=== PATIENT | male | born 1975 | race Caucasian/White ===

== ENCOUNTER 2021-04-20 17:11 | Emergency (ER) | payer MEDICARE, OTHER ==
[2021-04-20 18:23] LABS: BASOPHIL 0.5 % (0-2); EOSINOPHIL 0.4 % (0-5); HGB 17.5 g/dl (13.2-18.0); LYMPHOCYTE 17.8 % (15-48); MCH 27.8 pg (25.0-31.0); MCV 79.4 fL (78.0-100.0); MPV 10.2 fL (6.0-9.5); NEUTROPHIL 75.1 % (41-80); NRBC 0; PLT 282 K/uL (150-400); RDW 15.2 % (11.5-14.0); WBC 8.5 K/uL (4.0-10.5)
[2021-04-20 18:43] LABS: BUN/CREAT RATIO (CALC) 20.5 RATIO; CREATININE 0.83 mg/dL (0.67-1.17)
[2021-04-20 19:03] LABS: ALT 90 U/L (16-63); AST 30 U/L (15-37); LIPASE 251 U/L (73-393)
[2021-04-20 19:25] LABS: BILIRUBIN NEGATIVE (NEGATIVE); BLOOD NEGATIVE Ery/uL (NEGATIVE); CLARITY CLEAR (CLEAR); COLOR YELLOW (YELLOW); GLUCOSE (U) 3+ mg/dL (NORMAL); LEUKOCYTES NEGATIVE Leu/uL (NEGATIVE); NITRITE NEGATIVE (NEGATIVE); PROTEIN NEGATIVE (NEGATIVE); UROBILINOGEN 0.2 mg/dL (0.2-1.0)
[2021-04-20] MEDS ORDERED: BENTYL10 MG PO (19:48)
[2021-04-20] MEDS ORDERED: ZOFRAN4 M1 PO (19:48)
== END 2021-04-20 20:05 | disposition home or self-care (01) ==
LOC: FER 17:11
PROVIDERS: Nurse Practitioner Family
DX: R11.2 Nausea with vomiting, unspecified (principal); R51.9 Headache, unspecified; E11.9 Type 2 diabetes mellitus without complications; I10 Essential (primary) hypertension; Z20.822 Contact with and (suspected) exposure to COVID-19; Z79.01 Long term (current) use of anticoagulants; Z79.899 Other long term (current) drug therapy; Z79.84 Long term (current) use of oral hypoglycemic drugs
CPT/HCPCS: 36415; 80048; 81003; 83690; 84450; 84460; 85025; J1885; J2405; J3480; J7030; Q9967; U0002

== ENCOUNTER 2021-08-28 20:59 | Emergency (ER) | payer MEDICARE, OTHER ==
[~2021-08-28 20:59] MED LIST: BENTYL10 MG PO; ZOFRAN4 M1 PO
[2021-08-28 23:11] LABS: BASOPHIL 0.3 % (0-2); EOSINOPHIL 1.1 % (0-5); HCT 48.2 % (42.0-52.0); HGB 15.5 g/dl (13.2-18.0); LYMPHOCYTE 10.4 % (15-48); MCH 26.5 pg (25.0-31.0); MCHC 32.2 g/dL (32.0-36.0); MCV 82.4 fL (78.0-100.0); MPV 9.7 fL (6.0-9.5); NRBC 0; PLT 221 K/uL (150-400); RBC 5.85 M/uL (4.70-6.00); RDW 14.2 % (11.5-14.0); WBC 6.2 K/uL (4.0-10.5)
[2021-08-28 23:40] LABS: BUN/CREAT RATIO (CALC) 15.1 RATIO; CREATININE 0.86 mg/dL (0.67-1.17); POTASSIUM 3.4 mmol/L (3.5-5.1)
[2021-08-28 23:53] LABS: INFLUENZA A NAA NEGATIVE (NEGATIVE)
[2021-08-28 23:57] LABS: CORONAVIRUS 2019 SARS-COV-2 POSITIVE (NEGATIVE)
== END 2021-08-29 02:15 | disposition home or self-care (01) ==
LOC: FER 20:59
PROVIDERS: Nurse Practitioner Family
DX: U07.1 COVID-19 (principal); I10 Essential (primary) hypertension; E11.9 Type 2 diabetes mellitus without complications; J45.909 Unspecified asthma, uncomplicated; Z23 Encounter for immunization
CPT/HCPCS: 36415; 71045; 80048; 82728; 83615; 84145; 85025; 94664; J7030; M0243; Q0244; U0002